=== PATIENT | female | born 1980 | race Caucasian/White ===

== ENCOUNTER 2017-05-31 13:55 | Outpatient (CLI) | payer OTHER, BC ==
[2017-05-31] MEDS ORDERED: Gadobenate Dimeglumine 529 MG/1 ML (20ML VIAL) ONE (14:35)
== END 2017-05-31 13:56 | disposition home or self-care (01) ==
LOC: BICMRI 13:55
PROVIDERS: ATTEND Neurological Surgery
DX: M54.16 Radiculopathy, lumbar region (principal); M99.83 Other biomechanical lesions of lumbar region
CPT/HCPCS: 72158; A9579

== ENCOUNTER 2017-06-06 10:25 | Day surgery (SDC) | payer BC ==
[2017-06-03 15:55] VITALS: BMI 32.5
[2017-06-06] MEDS ORDERED: CEFAZOLIN/Water 2 GM/20 ML SYRINGE ONE (11:25)
[2017-06-06] MEDS ORDERED: Scopolamine 1.5 mg/72 hour Patch ONE (11:28)
[2017-06-06 11:49] LABS: #Lymphocytes 1.8 thou/uL (1.20-3.40); #Monocytes 0.3 thou/uL (0.11-0.59); #Neutrophils 3.9 thou/uL (1.40-6.50); %Basophils 0.5 % (0.0-1.0); %Eosinophils 0.8 % (0.0-10.0); %Lymphocytes 29.4 % (21.0-51.0); %Monocytes 5.1 % (0.0-10.0); %Neutrophils 64.3 % (42.0-75.0); Hemoglobin 14.1 g/dL (12.0-16.0); Mean Corpuscular HGB CONC 34.1 g/dL (32.0-36.0); Mean Corpuscular Hemoglobin 28.7 pg (27.0-31.0); Mean Corpuscular Volume 84.2 fl (81.0-99.0); Mean Platelet Volume 6.7 fL (7.4-10.4); Platelet Count 333 thou/uL (130-400); RBC Distribution Width 11.7 % (11.5-14.5)
[2017-06-06 12:02] LABS: Anion Gap 11 mmol/L (10-20); BUN (Urea Nitrogen) 10 mg/dL (7.0-18.7); Calc. Creatinine Clearance 156 mL/min (70-130); Calcium 9.7 mg/dL (7.8-10.44); Carbon Dioxide 25 mmol/L (22-29); Chloride 107 mmol/L (98-107); Estimated GFR-MDRD 84; Glucose 91 mg/dL (70-105); Potassium 4.4 mmol/L (3.5-5.1); Sodium 139 mmol/L (136-145)
[2017-06-06] MEDS ORDERED: Dexamethasone 20 MG/5 ML VIAL ONE (12:06)
[2017-06-06] MEDS ORDERED: Propofol 200 MG/20 ML VIAL ONE (12:06)
[2017-06-06] MEDS ORDERED: Glycopyrrolate 0.2 MG/ML 5 ML SYRINGE ONE (12:06)
[2017-06-06] MEDS ORDERED: Ondansetron HCl/PF 4 MG/2 ML Vial ONE (12:06)
[2017-06-06] MEDS ORDERED: Lidocaine 1% PF 5 ML VIAL ONE (12:06)
[2017-06-06] MEDS ORDERED: Sodium Chloride 0.9% 0 ML ONE (14:06)
[2017-06-06] MEDS ORDERED: Midazolam HCl 2 mg/2 ml Vial ONE (14:17)
[2017-06-06] MEDS ORDERED: Fentanyl 100 MCG/2 ML VIAL ONE ×3 (14:17→16:25)
--- NOTE | 2017-06-06 15:29 | OP ---
DATE OF PROCEDURE: 06/06/2017 SURGEON: Bal Galvez M.D. SPECIAL DEPUTY SHERIFF: Yenny Leos PROCEDURE PERFORMED: Left L4-5 microdiscectomy. PROCEDURE IN DETAIL: The patient was brought into the operating room, intubated. She was rolled in the prone position on gel-filled chest rolls. Incision made exposing left L4-5 and our level was con firmed by x-ray. We performed hemilaminectomy, removed the yellow ligament, and identified the left L5 nerve root. Beneath this was an extruded disk fragment removed in multiple fragments. A complete decompression of left L5 was achieved. The wound was extensively irrigated, immaculate hemostasis w as secured. Vancomycin powder was applied and the wound was closed in anatomic layers.
[2017-06-06] MEDS ORDERED: HYDROcodone/Acetaminophen 10/325 mg Tablet ONE (17:23)
== END 2017-06-06 18:18 | disposition home or self-care (01) ==
LOC: SDC 10:25
PROVIDERS: ATTEND Neurological Surgery
PROC: 0ST20ZZ Resection of Lumbar Vertebral Disc, Open Approach (ICD-10-PCS; principal; 2017-06-06)
PROC: 01NB0ZZ Release Lumbar Nerve, Open Approach (ICD-10-PCS; principal; 2017-06-06)
DX: M54.16 Radiculopathy, lumbar region (principal); E03.9 Hypothyroidism, unspecified; F41.9 Anxiety disorder, unspecified; G43.909 Migraine, unspecified, not intractable, without status migrainosus; Z79.890 Hormone replacement therapy; Z79.899 Other long term (current) drug therapy; Z97.5 Presence of (intrauterine) contraceptive device; Z98.891 History of uterine scar from previous surgery; Z98.890 Other specified postprocedural states
CPT/HCPCS: 36415; 76001; 80048; 85025; 93005; 93010; 96374; A4216; J1100; J2001; J2250; J2405; J2704; J3010; J3370; J3490

== ENCOUNTER 2020-06-03 07:45 | Outpatient (CLI) | payer BC, OTHER ==
--- NOTE | 2020-06-03 09:42 | MRI ---
MRI LUMBAR SPINE WITH AND WITHOUT CONTRAST: DATE: 06/03/2020 HISTORY: 39-year-old female with lumbar radiculopathy M 54.16 COMPARISON: 05/31/2017 TECHNIQUE: Multiple sequences obtained in axial and sagittal planes, pre and post IV injection of gadolinium-bas ed contrast agent. FINDINGS: There are 5 lumbar-type vertebrae. Vertebral body heights are maintained. No major spondylolisthesis. T12-L1, L1-2, and L2-3 intervertebral discs maintain their height and signal. Disc desiccation at levels caudal to L2-3. Mild disc space narrowing at L3-4, moderate disc space narrowing at L4-5, and mild to moderate disc s pace narrowing at L5-S1. Conus medullaris terminates at L2. Diffusely mostly hypointense bone marrow signal on T1 WI is nonspecific. It may represent red marrow conversion. T12-L1:Normal L1-2:Essentially normal L2-3:Normal L3-4:Shallow broad-based disc protrusion with posterior annular fissure mildly indents ventral surfac e of thecal sac. No high-grade central spinal canal stenosis. No neural foraminal stenosis. L4-5:Moderately large diffuse disc bulge remains. Superimposed central, bilateral paracentral disc ex trusion remains, including the moderately large portion that inferiorly migrates to lower margin of pedicle level of L3, with central and left paracentral/lateral components that chronically impinges o n the left L5 nerve root. It also indents the thecal sac. This extruded portion has slightly increased in size. There is mild to moderate thecal sac stenosis. Old laminectomy changes are again n oted. Mild bilateral neural foraminal stenosis is unchanged. No interval change overall. L5-S1:Left hemilaminectomy defect again noted. There has been interval increase in size of a right pa racentral disc extrusion which now compresses the right S1 nerve root at the lateral recess to a greater degree than before. It is surrounded by enhancing scar tissue and/or granulation tissue. Over all no high-grade bony central spinal canal stenosis. Mild right and moderate left neural foraminal stenosis is unchanged. IMPRESSION: 1) at L5-S1, there has been interval growth of a moderate sized right paracentral-lateral inferiorly migrated disc extrusion, which now compresses the right S1 nerve root at the lateral recess, to a greater degree than before. 2) at L4-5, there has been mild interval growth of and inferiorly migrated left paracentral-lateral c omponent of moderate-sized disc extrusion impinging on the left L5 nerve root. 3) old laminectomies at L4-5 and L5-S1.
[2020-06-03] MEDS ORDERED: Magnevist 469MG/ML 20 ML VIAL ONE (10:38)
== END 2020-06-03 07:46 | disposition home or self-care (01) ==
LOC: BICMRI 07:45
PROVIDERS: ATTEND Neurological Surgery
DX: M51.16 Intervertebral disc disorders with radiculopathy, lumbar region (principal); M51.27 Other intervertebral disc displacement, lumbosacral region
CPT/HCPCS: 72158; A9579

== ENCOUNTER 2020-07-16 10:05 | Outpatient (CLI) | payer BC ==
[2020-07-16 11:39] LABS: Hemoglobin 13.6 g/dL (12.0-15.5); Mean Corpuscular HGB CONC 32.2 g/dL (32.0-36.0); Mean Corpuscular Hemoglobin 27.6 pg (27.0-33.0); Mean Corpuscular Volume 85.8 fl (81.6-98.3); Mean Platelet Volume 9.3 fl (7.4-10.4); Platelet Count 333 10x3/uL (150-450); RBC Distribution Width 12.7 % (11.5-14.5); Red Blood Cell (RBC) Count 4.92 10x6/uL (3.90-5.03); White Blood Cell (WBC) Count 8.5 10x3/uL (3.5-10.5)
[2020-07-16 11:57] LABS: Anion Gap 12 mmol/L (10-20); BUN (Urea Nitrogen) 14 mg/dL (7.0-18.7); Calc. Creatinine Clearance 0 mL/min (70-130); Calcium 9.4 mg/dL (7.8-10.44); Carbon Dioxide 26 mmol/L (22-29); Chloride 106 mmol/L (98-107); Glucose 88 mg/dL (70-105); Potassium 4.8 mmol/L (3.5-5.1); Sodium 139 mmol/L (136-145)
[2020-07-16 19:46] LABS: SARS-CoV-2 PCR by NAA Not Detected (NotDetected)
== END 2020-07-16 10:06 | disposition home or self-care (01) ==
LOC: LABBT 10:05
PROVIDERS: ATTEND Neurological Surgery
DX: Z01.818 Encounter for other preprocedural examination (principal); Z20.822 Contact with and (suspected) exposure to COVID-19; M54.16 Radiculopathy, lumbar region
CPT/HCPCS: 80048; 85027; 87635; 93005; 93010; U0003; U0005

== ENCOUNTER 2020-07-21 06:04 | Day surgery (SDC) | payer BC ==
[2020-07-17 11:54] VITALS: BMI 31.3
[2020-07-21] MEDS ORDERED: Fentanyl 100 MCG/2 ML VIAL ONE ×3 (06:29→09:59)
[2020-07-21] MEDS ORDERED: Meperidine HCl/PF 25 MG/ML VIAL ONE ×2 (06:29→09:34)
[2020-07-21] MEDS ORDERED: Famotidine/PF 20 mg/2ml Vial ONE (06:29)
[2020-07-21] MEDS ORDERED: SUGAMMADEX SODIUM 200 MG/2 ML VIAL ONE (06:35)
[2020-07-21] MEDS ORDERED: Scopolamine 1.5 mg/72 hour Patch ONE (06:52)
[2020-07-21] MEDS ORDERED: Dexamethasone 20 MG/5 ML VIAL ONE (07:01)
[2020-07-21] MEDS ORDERED: ePHEDrine 50 MG/ML VIAL ONE (07:01)
[2020-07-21] MEDS ORDERED: PROPOFOL 200 MG/20 ML VIAL ONE (07:01)
[2020-07-21] MEDS ORDERED: Ketorolac Tromethamine 30 MG/ML VIAL ONE (07:01)
[2020-07-21] MEDS ORDERED: Lidocaine 1% PF 5 ML VIAL ONE (07:01)
[2020-07-21] MEDS ORDERED: Ondansetron PF 4 MG/2 ML Vial ONE (07:01)
[2020-07-21] MEDS ORDERED: PHENYLEPHRINE-NS 100 MCG/ML 10 ML SYRINGE ONE (07:01)
[2020-07-21] MEDS ORDERED: Metoclopramide HCl 10 MG/2 ML VIAL ONE (07:01)
[2020-07-21] MEDS ORDERED: Rocuronium Bromide 10 MG/ML (10ML VIAL) ONE (07:01)
[2020-07-21] MEDS ORDERED: Propofol 1,000 MG/100 ML VIAL IV ONE (07:09)
[2020-07-21] MEDS ORDERED: Midazolam HCl 2 mg/2 ml Vial ONE (07:13)
[2020-07-21] MEDS ORDERED: Promethazine HCl 25 MG/ML VIAL ONE (07:19)
[2020-07-21] MEDS ORDERED: Ondansetron HCl/PF 4 MG/2 ML Vial IVP PRN (09:04)
[2020-07-21] MEDS ORDERED: Promethazine HCl 25 MG/ML VIAL SLOW IVP PRN (09:04)
[2020-07-21] MEDS ORDERED: Promethazine HCl 25 MG/ML VIAL IM PRN (09:04)
[2020-07-21] MEDS ORDERED: Meperidine HCl/PF 25 MG/ML VIAL SLOW IVP PRN (09:04)
[2020-07-21] MEDS ORDERED: PACU-Morphine 4MG/ML VIAL SLOW IVP PRN (09:04)
[2020-07-21] MEDS ORDERED: HYDROcodone/Acetaminophen 5/325 mg Tablet ONE (11:11)
== END 2020-07-21 12:30 | disposition home or self-care (01) ==
LOC: SDC 06:04
PROVIDERS: ATTEND Neurological Surgery
PROC: 0SG10AJ Fusion of 2 or more Lumbar Vertebral Joints with Interbody Fusion Device, Posterior Approach, Anterior Column, Open Approach (ICD-10-PCS; principal; 2020-07-21)
PROC: 0ST20ZZ Resection of Lumbar Vertebral Disc, Open Approach (ICD-10-PCS; principal; 2020-07-21)
PROC: 0ST40ZZ Resection of Lumbosacral Disc, Open Approach (ICD-10-PCS; principal; 2020-07-21)
DX: M51.16 Intervertebral disc disorders with radiculopathy, lumbar region (principal); E07.9 Disorder of thyroid, unspecified; Z79.899 Other long term (current) drug therapy
CPT/HCPCS: 76000; C1713; C1768; J0690; J1100; J1885; J2175; J2250; J2405; J2550; J2704; J2765; J3010; J3370; J3490; S0028

== ENCOUNTER 2020-08-06 13:09 | Outpatient (CLI) | payer BC | END 2020-08-06 13:10 | disposition home or self-care (01) | LOC: TBSIIMAG 13:09 | PROVIDERS: ATTEND Neurological Surgery | DX: M54.16 Radiculopathy, lumbar region (principal); Z98.890 Other specified postprocedural states | CPT/HCPCS: 72100 ==

== ENCOUNTER 2020-09-02 16:26 | Outpatient (CLI) | payer BC | END 2020-09-02 16:27 | disposition home or self-care (01) | LOC: TXBIOMET 16:26 → TBSIIMAG 16:27 | PROVIDERS: ATTEND Neurological Surgery | DX: M54.16 Radiculopathy, lumbar region (principal); Z98.890 Other specified postprocedural states | CPT/HCPCS: 72100 ==

== ENCOUNTER → 2023-08-29 | Day surgery (SDC) | payer BC | LOC: BICULT 12:37 | PROVIDERS: ATTEND Obstetrics & Gynecology | PROC: 0H9U3ZX Drainage of Left Breast, Percutaneous Approach, Diagnostic (ICD-10-PCS; principal; 2023-08-29) | DX: D05.12 Intraductal carcinoma in situ of left breast (principal) | CPT/HCPCS: 19083; 88305; 88341; 88342 ==

== ENCOUNTER 2023-10-18 10:34 | Outpatient (CLI) | payer BC ==
[2023-10-18 11:49] LABS: #Basophils 0.03 10x3/uL (0.0-0.2); #Eosinphils 0.03 10x3/uL (0.0-0.5); #Monocytes 0.61 10x3/uL (0.0-1.1); #Neutrophils 7.08 10x3/uL (1.5-8.4); %Basophils 0.3 % (0.0-2.0); %Eosinophils 0.3 % (0.0-6.0); %Lymphocytes 13.3 % (18.0-47.0); %Monocytes 6.8 % (0.0-10.0); %Neutrophils 78.9 % (40.0-75.0); Hematocrit 44.3 % (34.9-44.5); Hemoglobin 15.4 g/dL (12.0-15.5); Mean Corpuscular HGB CONC 34.8 g/dL (32.0-36.0); Mean Corpuscular Hemoglobin 29.1 pg (27.0-33.0); Mean Corpuscular Volume 83.7 fL (81.6-98.3); Mean Platelet Volume 9.2 fL (7.4-10.4); Platelet Count 435 10x3/uL (150-450); RBC Distribution Width 12.8 % (11.5-14.5); Red Blood Cell (RBC) Count 5.29 10x6/uL (3.90-5.03)
[2023-10-18 12:05] LABS: Anion Gap 14 mmol/L (10-20); BUN (Urea Nitrogen) 11 mg/dL (7.0-18.7); Calc. Creatinine Clearance 0 mL/min (70-130); Carbon Dioxide 24 mmol/L (22-29); Chloride 106 mmol/L (98-107); Estimated GFR 83; Glucose 104 mg/dL (70-105); Potassium 4.1 mmol/L (3.5-5.1); Sodium 140 mmol/L (136-145)
== END 2023-10-18 10:35 | disposition home or self-care (01) ==
LOC: LABBT 10:34
PROVIDERS: ATTEND Specialist
DX: Z01.812 Encounter for preprocedural laboratory examination (principal); D05.12 Intraductal carcinoma in situ of left breast
CPT/HCPCS: 80048; 85025

== ENCOUNTER → 2023-10-20 | Day surgery (SDC) | payer BC ==
[2023-10-18 10:51] VITALS: BMI 31.6
[~2023-10-20] MED LIST: Acetaminophen 500 MG TAB ONE; Bupivacaine 0.25% HCL 30 ML VIAL ONE; CEFAZOLIN 2 GM VIAL ONE; Dexamethasone 20 MG/5 ML VIAL ONE; Dexmedetomidine 200 MCG/2 ML VIAL ONE; EPINEPHrine 1 MG/ML VIAL ONE; Ketorolac Tromethamine 30 MG (1 mL) VIAL ONE; Lidocaine 1% PF 5 ML VIAL ONE; Midazolam HCl 2 mg/2 ml Vial ONE; Ondansetron PF 4 MG/2 ML Vial ONE; PROPOFOL 20 ML ONE; Scopolamine 1 mg/72 hour Patch ONE; Sodium Chloride 0.9% 100 ML ONE; ePHEDrine Sulfate 50 MG/10 ML VIAL ONE; fentaNYL PF 100 MCG/2 ML SYRINGE ONE
== END ==
LOC: SDC 07:21
PROVIDERS: ATTEND Specialist
PROC: 0HBU0ZZ Excision of Left Breast, Open Approach (ICD-10-PCS; principal; 2023-10-20)
DX: D05.12 Intraductal carcinoma in situ of left breast (principal); E07.9 Disorder of thyroid, unspecified; Z79.890 Hormone replacement therapy
CPT/HCPCS: 76098; 88307; J0171; J0665; J1100; J1885; J2250; J2405; J2704; J3490

== ENCOUNTER 2025-01-25 12:52 | Outpatient (CLI) | payer BC | END 2025-01-25 12:53 | disposition home or self-care (01) | LOC: BICMAMMO 12:52 | PROVIDERS: ATTEND Internal Medicine | DX: Z13.820 Encounter for screening for osteoporosis (principal); M81.0 Age-related osteoporosis without current pathological fracture | CPT/HCPCS: 77080 ==